=== PATIENT | female | born 1935 | race Caucasian/White ===

== ENCOUNTER 2017-06-23 13:54 | Emergency (ER) | payer OTHER ==
[~2017-06-23] VITALS: Ht 149.9 cm; Wt 73.5 kg
[2017-06-23 13:58] VITALS: Ht 149.9 cm; Wt 73.5 kg
--- NOTE | 2017-06-23 16:48 | RADRPT ---
PROCEDURE: US left lower extremity veins. CLINICAL INDICATION: Left leg pain and swelling. TECHNIQUE: Multiple longitudinal and transverse images of the left lower extremity veins were obta ined with jennings scale and color Doppler imaging. The common femoral vein, femoral vein, and popliteal vein were evaluated. 2D grayscale measurements with compression sonography, pulsed Doppler, color D oppler, and pulsed Doppler with augmentation. COMPARISON: No prior studies are available for comparison. FINDINGS: The left common femoral, femoral and popliteal veins are normally compressible throughout. Color fl ow demonstrates normal filling of the vessels. Normal waveforms are visualized and there is normal response to augmentation. IMPRESSION: 1. No evidence of deep vein thrombosis involving the left lower extremity. RPTAT: QQ .Favian Brantley MD, MD Date Time Electronically viewed and signed by .Favian Brantley MD, on 06/23/2017 16:47 .R/
[2017-06-23] MEDS ORDERED: ASPI-664 PO (17:15)
[2017-06-23] MEDS ORDERED: CHOL100062 PO (17:15)
[2017-06-23] MEDS ORDERED: AMLO2.5T78 PO (17:16)
[2017-06-23] MEDS ORDERED: ALLO100T PO (17:17)
[2017-06-23] MEDS ORDERED: SIMV10TA PO (17:18)
[2017-06-23] MEDS ORDERED: METO-448 PO (17:20)
[2017-06-23] MEDS ORDERED: TRAM50TA2 PO (17:55)
[2017-06-23] MEDS ORDERED: DICL100G37 TOP (17:55)
[2017-06-23 18:03] VITALS: BP 156/69; PULSE 78; RESP 18; TEMP 97.8
--- NOTE | 2017-06-24 17:16 | ERD ---
ER Documentation Chief Complaint Date/Time DATE: 06/24/17 TIME: 17:13 Chief Complaint sent by PCP to rule out DVT HPI -year-old woman referred by PMD to rule out DVT to the left lower extremity. Patient states she has had bilateral lower extremity swelling 1 month slightly worse on the left compared to the right. She denies fevers or chills, no chest pain or shortness of breath, no headache or blurry vision. She also complains of left foot pain mostly to the lateral sole and ankle pain, although she was worked up for this in another emergency department and x-rays of the left foot revealed bony spurs and ankle was unremarkable. ROS All systems reviewed and are negative except as per history of present illness. Medications Home Meds Active Scripts Diclofenac Sodium* (Voltaren* Gel) 1% -100 Gm Gel, 2 GM TOP TID, #1 TUB Prov:AURELIANO VILLARREAL MD 06/23/17 Tramadol HCl (Tramadol HCl) 50 Mg Tablet, 50 MG PO BID for PAIN LEVEL 6-10, #12 TAB Prov:AURELIANO VILLARREAL MD 06/23/17 Reported Medications Metoprolol Tartrate* (Lopressor*) Unknown Strength Tab, MG PO DAILY, #60 TAB 06/23/17 Simvastatin* (Zocor*) Unknown Strength Tablet, 1 TAB PO QHS, #30 TAB 06/23/17 Allopurinol* (Allopurinol*) 100 Mg Tablet, 100 MG PO DAILY, TAB 06/23/17 Amlodipine Besylate* (Amlodipine Besylate*) 2.5 Mg Tablet, 2.5 MG PO QHS, #30 TAB 06/23/17 Cholecalciferol* (Vitamin D3*) 1,000 Unit Tablet, 1000 UNIT PO DAILY, TAB 06/23/17 Aspirin* (Aspirin* EC) 81 Mg Tablet.dr, 81 MG PO DAILY, TAB 06/23/17 Allergies Allergies: Coded Allergies: No Known Allergy (Unverified , 06/23/17) PMhx/Soc History of gout, hypertension, dyslipidemia, CAD, History of Surgery: Yes (C SECTION , THYROIDECTOMY ) Anesthesia Reaction: No Hx Neurological Disorder: No Hx Respiratory Disorders: No Hx Cardiac Disorders: Yes (HTN , HIGH CHOLESTEROL ) Hx Psychiatric Problems: No Hx Miscellaneous Medical Probl: No Hx Alcohol Use: No Hx Substance Use: No Hx Tobacco Use: No Smoking Status: Never smoker FmHx Family History: No diabetes Physical Exam Vitals Vital Signs Date Time Temp Pulse Resp B/P Pulse Ox O2 Delivery O2 Flow Rate FiO2 06/23/17 18:03 97.8 78 18 156/69 98 Room Air 06/23/17 16:16 76 18 146/66 98 Room Air 06/23/17 13:58 97.8 76 18 156/91 98 Physical Exam GENERAL: Well-developed, well-nourished, well-hydrated, in no apparent distress , looks nontoxic in appearance HEENT: Moist mucous membranes, pink conjunctiva, no cervical spine tenderness or step-off deformities, no goiter, no jaundice or icterus, extraocular movements intact without pain. No submandibular induration, and no pharyngeal erythema NEURO: Alert and oriented 3, cranial nerves II through XII intact bilaterally, pupils equal round reactive to light, no focal deficits or facial asymmetry, sensation intact distally Strength 5/5 in upper and lower extremities bilaterally CARDIAC: Regular rate and rhythm, no murmurs rubs or gallops LUNGS: Clear bilaterally no wheezing crackles or stridor ABDOMEN: Soft nontender, no guarding, no rigidity, no rebound, no psoas sign no obturator sign. Normoactive bowel sounds SKIN: Warm and dry to touch, no abrasions, contusions, or hematomas, no lacerations, no ecchymosis, no target lesions, and without ulcers EXTREMITIES: No clubbing cyanosis, 1+ pitting edema in the lower extremities bilaterally, calves are bilaterally symmetrical, no Homans sign, no popliteal cord sign. Distal pulses equal and bilateral PSYCH: Normal affect without agitation or irritability Procedures/MDM Lower extremity ultrasound was performed, was negative for deep vein thrombosis of the left lower extremity. She refused oral or IM analgesics. Reassurance was provided, imaging study results were provided to the patient and recommendation was for PMD follow-up. Departure Diagnosis: Primary Impression: Osteoarthritis Osteoarthritis location: knee Osteoarthritis type: primary Laterality: left Qualified Code: M17.12 - Primary osteoarthritis of left knee Additional Impressions: Peripheral edema Bony spur Condition: Good Patient Instructions: Foot Surgery: Bone Spurs, Osteoarthritis AURELIANO VILLARREAL MD Jun 24, 2017 17:16
== END 2017-06-23 18:15 | disposition home or self-care (01) ==
LOC: E/R 13:54
DX: M17.12 Unilateral primary osteoarthritis, left knee (principal); R60.0 Localized edema; M25.762 Osteophyte, left knee; I10 Essential (primary) hypertension; I25.10 Atherosclerotic heart disease of native coronary artery without angina pectoris; Z79.82 Long term (current) use of aspirin
CPT/HCPCS: 93971; Z7502; 99284

== ENCOUNTER → 2017-12-17 | Outpatient (CLI) | END | disposition home or self-care (01) ==

== ENCOUNTER → 2018-03-04 | Outpatient (CLI) | END | disposition home or self-care (01) ==

== ENCOUNTER → 2018-05-30 | Outpatient (CLI) | END | disposition home or self-care (01) ==

== ENCOUNTER → 2018-06-30 | Outpatient (CLI) | END | disposition home or self-care (01) ==

== ENCOUNTER → 2018-07-18 | Outpatient (CLI) | END | disposition home or self-care (01) ==

== ENCOUNTER → 2018-07-26 | Outpatient (CLI) | END | disposition home or self-care (01) ==

== ENCOUNTER → 2018-09-07 | Outpatient (CLI) | END | disposition home or self-care (01) ==

== ENCOUNTER → 2018-09-29 | Outpatient (CLI) | payer MEDICARE, OTHER ==
[~2018-09-29] MED LIST: AMLO2.5T78 PO; ASPI81TA52 PO; ATOR20TA38 PO; DOXA2TAB PO; FURO-110 PO; LOSA50TA14 PO; MECL-77 PO; MELO15TA30 PO; POTA10TA37 PO
--- NOTE | 2018-09-29 12:20 | CONS ---
Date/Time of Note Date/Time of Note DATE: 09/29/18 TIME: 12:07 Consult Date/Type/Reason Admit Date/Time Initial Consult Date Subjective 83-year-old female following up today for left knee arthritis. She is previously scheduled to have a left total knee arthroplasty but was canceled secondary to elevated creatinine and anemia. She has since seen her PCP, customer account representative, and the consumer marketing manager. I personally spoke with the consumer marketing manager and states that the patient's kidney function is decreased but stable. She does not expect the patient to progress anytime soon to full renal failure and need of dialysis. The consumer marketing manager believes patient undergoing left total knee arthroplasty would be safe. At this time the patient states her knee does hurt her significantly. Her symptoms are unchanged From prior visits. However she is nervous about proceeding with surgery given that her surgery was previously canceled. This time she would like to proceed with hyaluronic acid injections to the left knee as she previously failed steroid injections. If these injections fail she would likely reconsider surgery. Objective Weight: 160 pound Height: 5 foot 1 inch Temperature: 98.0 Heart Rate: 81 Blood Pressure: 143/65 Respiratory Rate: 14 Exam General: Alert, oriented x3. No Acute Distress. Heart: Regular rate and rhythm. Lungs: No respiratory distress. No accessory muscle use. Musculoskeletal: Left Knee This is a well developed female who is alert, oriented times three and in no apparent distress. Skin is intact over the left knee as well as the lower extremity with no abrasions, lacerations, or ulcerations. Observation of the patient's gait reveals an antalgic gait with Varus thrust. Frontal plane alignment is varus. There is pain on palpation of medial and lateral joint line. The patient demonstrates grinding anteriorly with ROM. Range of motion: 10 extension to approximately 120 degrees of flexion. Collateral ligament testing reveals no instability with varus or valgus stress at 0 and 30 degrees of flexion. Negative Brendan's and negative posterior drawer. Neurovascularly intact with 5/5 EHL/tibialis anterior/gastroc. Sensation intact to light touch in a sural, saphenous, deep peroneal, superficial peroneal, medial and lateral plantar nerve distribution. Palpable, symmetric dorsalis pedis and posterior tibial pulses in both lower extremities. Hip examination normal. Assessment/Plan Chief Complaint/Hosp Course 83-year-old female with stable early renal failure, anemia, diabetes (last Hgba1c was 6.1). The patient would like to try hyaluronic acid injections at this time. If these fail she will likely want to proceed with total knee arthroplasty. Plan: Start Orthovisc injection today Activities as tolerated Follow-up for second and third Orthovisc injection Additional Assessment/Plan Left knee viscosupplementation injection procedure: Risks and benefits of viscosupplementation injection reviewed with patient. The risks include infection, failure, pain, swelling, nerve/tendon/ligament damage. The patient verbalized understanding and verbal consent was obtained prior to procedure. The left knee was prepped in a sterile fashion with alcohol and betadine the site of injection was confirmed. Anteromedial approach was used. The skin and capsule was anesthetized with 3mL 1% lidocaine. The left knee was injected with Orthovisc. Injection flowed freely. Good hemostasis was achieved and no complications noted. The patient tolerated the procedure well. Limit activity and ice for 24-48 hours JASON BORGES MD Sep 29, 2018 12:19
== END | disposition home or self-care (01) ==
LOC: HKI 09:58
PROVIDERS: ATTEND Orthopaedic Surgery Adult Reconstructive Orthopaedic Surgery
DX: M13.862 Other specified arthritis, left knee (principal)
CPT/HCPCS: 20610; G0463; J7324

== ENCOUNTER → 2018-10-06 | Outpatient (CLI) | payer MEDICARE, OTHER ==
--- NOTE | 2018-10-06 16:35 | CONS ---
Consult Date/Type/Reason Admit Date/Time Initial Consult Date Date/Time of Note DATE: 10/06/18 TIME: 16:33 Subjective 83-year-old female following up today for second injection of Orthovisc to left knee. Patient states she feels a little better since first injection. No changes otherwise. Objective Exam Musculoskeletal: Left lower extremity Skin intact. Neurovascular intact Results/Medications Home Meds Reported Medications Potassium Chloride* (K-Dur*) 10 Meq Tab.prt.sr, 10 MEQ PO DAILY, TAB 07/26/18 Furosemide* (Lasix*) 20 Mg Tablet, 20 MG PO DAILY, TAB 07/26/18 Meloxicam* (Mobic*) 15 Mg Tablet, 15 MG PO DAILY PRN for PAIN, #30 TAB 07/26/18 Meclizine Hcl* (Meclizine Hcl*) 25 Mg Tablet, 12.5 MG PO Q8H PRN for DIZZINESS, TAB 07/26/18 Atorvastatin Calcium* (Atorvastatin Calcium*) 20 Mg Tablet, 20 MG PO QHS, #30 TAB 07/26/18 Doxazosin Mesylate* (Doxazosin Mesylate*) 2 Mg Tablet, 2 MG PO HS, TAB 07/26/18 Aspirin (Low Dose Aspirin) 81 Mg Tablet.dr, 81 MG PO DAILY, #30 TAB 07/26/18 Losartan Potassium* (Losartan Potassium*) 50 Mg Tablet, 50 MG PO DAILY, TAB 07/26/18 Amlodipine Besylate* (Amlodipine Besylate*) 2.5 Mg Tablet, 2.5 MG PO DAILY, #30 TAB 07/26/18 Assessment/Plan Hospital Course (Demo Recall) 83-year-old female with end-stage arthritis of her left knee. Plan: Administer second injection of Orthovisc to left knee Follow-up in 1 week for third and final Orthovisc injection Assessment/Plan (Daily) Left knee viscosupplementation injection procedure: Risks and benefits of viscosupplementation injection reviewed with patient. The risks include infection, failure, pain, swelling, nerve/tendon/ligament damage. The patient verbalized understanding and verbal consent was obtained prior to procedure. The left knee was prepped in a sterile fashion with alcohol and betadine the site of injection was confirmed. Anteromedial approach was used. The skin and capsule was anesthetized with 3mL 1% lidocaine. The left knee was injected with Orthovisc. Injection flowed freely. Good hemostasis was achieved and no complications noted. The patient tolerated the procedure well. Limit activity and ice for 24-48 hours JASON BORGES MD Oct 06, 2018 16:35
== END | disposition home or self-care (01) ==
LOC: HKI 10:09
PROVIDERS: ATTEND Orthopaedic Surgery Adult Reconstructive Orthopaedic Surgery
DX: M17.12 Unilateral primary osteoarthritis, left knee (principal); Z79.82 Long term (current) use of aspirin
CPT/HCPCS: 20610; G0463; J7324

== ENCOUNTER → 2019-02-08 | Outpatient (CLI) | payer MEDICARE, OTHER ==
--- NOTE | 2019-02-08 17:06 | CONS ---
Consult Date/Type/Reason Admit Date/Time Initial Consult Date Date/Time of Note DATE: 02/08/19 TIME: 17:01 Subjective This is an 84-year-old female who follows up today regarding her left knee. She was previously scheduled to have a left total knee arthroplasty last year however it was canceled secondary to laboratory abnormalities. She has been seeing her PCP and laboratory chemical assistant. I did speak to her laboratory chemical assistant several months ago that time her kidney function was stable and there was no concern for any need of dialysis postoperatively or in the near future. The laboratory chemical assistant did clear the patient for surgery. That time however the patient wished to proceed with ongoing conservative management. She had a left knee steroid injection several months ago. The injection lasted for 3 months. She is now in pain and would like to further discuss surgery at this time. She denies any other changes in her symptoms. Denies numbness and tingling. Objective Vitals Weight: 159 pounds Height: 5 foot 1 inches Temperature: 90.4 Heart Rate: 105 Blood Pressure: 147/72 Respiratory Rate: 14 Exam General: Alert, oriented x3. No Acute Distress. Heart: Regular rate and rhythm. Lungs: No respiratory distress. No accessory muscle use. Musculoskeletal: Left Knee This is a well developed female who is alert, oriented times three and in no apparent distress. Skin is intact over the left knee as well as the lower extremity with no abrasions, lacerations, or ulcerations. Observation of the patient's gait reveals an antalgic gait with Varus thrust. Frontal plane alignment is varus. There is pain on palpation of medial and lateral joint line. The patient demonstrates grinding anteriorly with ROM. Range of motion: 10 extension to approximately 120 degrees of flexion. Collateral ligament testing reveals no instability with varus or valgus stress at 0 and 30 degrees of flexion. Negative Brendan's and negative posterior drawer. Neurovascularly intact with 5/5 EHL/tibialis anterior/gastroc. Sensation intact to light touch in a sural, saphenous, deep peroneal, superficial peroneal, medial and lateral plantar nerve distribution. Palpable, symmetric dorsalis pedis and posterior tibial pulses in both lower extremities. Hip examination normal. Results/Medications Home Meds Reported Medications Potassium Chloride* (K-Dur*) 10 Meq Tab.prt.sr, 10 MEQ PO DAILY, TAB 07/26/18 Furosemide* (Lasix*) 20 Mg Tablet, 20 MG PO DAILY, TAB 07/26/18 Meloxicam* (Mobic*) 15 Mg Tablet, 15 MG PO DAILY PRN for PAIN, #30 TAB 07/26/18 Meclizine Hcl* (Meclizine Hcl*) 25 Mg Tablet, 12.5 MG PO Q8H PRN for DIZZINESS, TAB 07/26/18 Atorvastatin Calcium* (Atorvastatin Calcium*) 20 Mg Tablet, 20 MG PO QHS, #30 TAB 07/26/18 Doxazosin Mesylate* (Doxazosin Mesylate*) 2 Mg Tablet, 2 MG PO HS, TAB 07/26/18 Aspirin (Low Dose Aspirin) 81 Mg Tablet.dr, 81 MG PO DAILY, #30 TAB 07/26/18 Losartan Potassium* (Losartan Potassium*) 50 Mg Tablet, 50 MG PO DAILY, TAB 07/26/18 Amlodipine Besylate* (Amlodipine Besylate*) 2.5 Mg Tablet, 2.5 MG PO DAILY, #30 TAB 07/26/18 Assessment/Plan Hospital Course (Demo Recall) 84-year-old female with multiple medical problems including stable chronic kidney disease. She is failing conservative therapy. I do think she would be a good surgical candidate for left total knee arthroplasty. The patient would like to proceed. A lengthy discussion ensued, where the patient was told that if and when the symptoms are intolerable, elective total knee replacement should be considered. The operative procedure was explained using diagrams and or three-dimensional models. The rehabilitation, the potential risks, benefits and alternatives were discussed at length. Specific risks discussed included but were not limited to excessive blood loss and the need for transfusion and therefore the risk of transmissible disease or transfusion reaction, deep infection and the potential need for repetitive debridements, implant removal, long-term antibiotic therapy, possibly requiring deep venous access, extensor mechanism complications, including subluxation or dislocation, disruption of the quadriceps or patellar tendon, fracture of the patella or avulsion of the tibial tuberosity, femoral, tibial or fibular fracture and the need for further surgery for fixation, neurovascular injury with temporary or permanent numbness, tingling, weakness or paralysis, arterial injury requiring surgery including possible amputation, deep venous thrombosis, pulmonary embolism and , persistent pain, weakness, or limp, late aseptic loosening and the need for revision, polyethylene wear-induced osteolysis and related problems, post-operative stiffness requiring closed manipulation, and finally, a wide variety of unanticipated medical problems. The opportunity to ask questions and address any concerns was provided. The patient would like to proceed with scheduling. Preoperative clearance Schedule left total knee arthroplasty Follow-up for preop appointment with new x-rays of the left knee JASON BORGES MD February 08, 2019 17:06
== END | disposition home or self-care (01) ==
LOC: HKI 09:35
PROVIDERS: ATTEND Orthopaedic Surgery Adult Reconstructive Orthopaedic Surgery
DX: Z01.818 Encounter for other preprocedural examination (principal); M25.562 Pain in left knee; N18.9 Chronic kidney disease, unspecified
CPT/HCPCS: G0463